=== PATIENT | female | born 1975 | race Caucasian/White ===

== ENCOUNTER → 2024-01-06 07:59 | Outpatient (CLI) | payer BC, SELFPAY ==
--- NOTE | ~2024-01-06 | CT_ITS ---
EXAMINATION: CT chest high resolution wo wi DATE: 01/06/2024 08:26 INDICATION: Lung nodule TECHNIQUE: Computed tomography (CT) of the chest was performed without intravenous contrast. The dose -length product (DLP) was 266.72 mGy-cm. Automated exposure control and iterative reconstruction tech nique were employed. COMPARISON: Chest radiograph, 12/25/2023 FINDINGS: No pleural effusion or pneumothorax. A calcified nodule of the left upper lobe and calcifie d left hilar lymph nodes are consistent with old granulomatous disease. There are subtle airspace opa cities in the right lower lobe. No suspicious pulmonary nodule is identified. There is soft tissue de nsity of the anterior mediastinum which could reflect residual thymus. There is mild thoracic spondyl osis. IMPRESSION: 1. Left upper lobe nodule, consistent with old granulomatous disease. 2. Subtle airspace opacities in the right lower lobe, likely infectious or inflammatory. Reviewed, dictated and finalized at location L. K TRIMMER IMPRESSION: 1. Left upper lobe nodule, consistent with old granulomatous disease. 2. Subtle airspace opacities in the right lower lobe, likely infectious or infl ammatory.
== END ==
PROVIDERS: PCP Nurse Practitioner Family; Visit Provider Nurse Practitioner Family
DX: J84.10 Pulmonary fibrosis, unspecified (principal); Z80.1 Family history of malignant neoplasm of trachea, bronchus and lung
CPT/HCPCS: 71250

== ENCOUNTER 2024-01-13 09:15 | Outpatient (CLI) | payer BC, SELFPAY ==
--- NOTE | ~2024-01-13 | US_ITS ---
EXAMINATION: US thyroid DATE: 01/13/2024 09:30 INDICATION: Thyroid disorder TECHNIQUE: Multiple ultrasound images of the thyroid were obtained. COMPARISON: None. FINDINGS: The right thyroid is reportedly surgically absent with no abnormal tissue identified at the right thy roid fossa The left thyroid lobe measures 6.4 x 2.3 x 2.5 cm. 2.5 cm solid isoechoic left thyroid no dule with smooth to ill-defined margins and without internal echogenic foci (TI-RADS 3, mildly suspic ious , FNA if >=2.5 cm, annual followup is >=1.5 cm). There is a second 1.3 cm solid hypoechoic left thyroid nodule with smooth margins and without internal echogenic foci (TI-RADS 4, moderately suspici ous , FNA if >=1.5 cm, annual followup is >=1 cm). There is normal echotexture, echogenicity and vasc ular flow throughout the remainder of the thyroid gland. IMPRESSION: 1. 2.5 cm TI RADS 3 and 1.3 cm TI RADS 4 left thyroid nodules. Recommend ultrasound-guided biopsy of the former and annual ultrasound follow-up of the latter. 2. Status post right thyroidectomy. Reviewed, dictated and finalized at location A. KLAYER IMPRESSION: 1. 2.5 cm TI RADS 3 and 1.3 cm TI RADS 4 left thyroid nodules. Recommend ultras ound-guided biopsy of the former and annual ultrasound follow-up of the latter. 2. Status post right thyroidectomy.
== END 2024-01-13 09:16 ==
LOC: MICIMG 09:16
PROVIDERS: PCP Nurse Practitioner Family; Visit Provider Nurse Practitioner Family
DX: E04.2 Nontoxic multinodular goiter (principal); Z90.89 Acquired absence of other organs
CPT/HCPCS: 76536

== ENCOUNTER 2024-02-17 12:31 | Outpatient (CLI) | payer BC, SELFPAY ==
--- NOTE | ~2024-02-17 | US_ITS ---
EXAMINATION: US FNA w image guidance DATE: 02/17/2024 14:16 INDICATION: Thyroid nodules TECHNIQUE: A time-out was performed to verify the patient's name, date of , and procedure to be performed . The procedure and its benefits and risks were discussed with the patient. Risks specifically discus sed included bleeding and infection. The patient understood the risks and agreed to proceed. The neck was prepped and draped in the usual sterile manner. 3 mL 1% lidocaine was used for local anesthesia . 6 passes were made with a 25G needle into the lesion. Appropriate needle location was documented with continuous sonographic guidance. A sterile bandage was applied. There were no immediate compli cations. FINDINGS: Grayscale ultrasound images demonstrate biopsy needles advanced into a 2.5 cm TI RADS 3 left thyroid mass. IMPRESSION: 1. Successful ultrasound-guided fine needle aspiration of a 2.5 cm TI RADS 3 left thyroid mass of co ncern. Reviewed, dictated and finalized at location A. IMPRESSION: 1. Successful ultrasound-guided fine needle aspiration of a 2.5 cm TI RADS 3 l eft thyroid mass of concern.
== END 2024-02-17 12:32 | disposition home or self-care (01) ==
PROVIDERS: PCP Nurse Practitioner Family; Visit Provider Nurse Practitioner Family
DX: E89.0 Postprocedural hypothyroidism (principal)
CPT/HCPCS: 10005; 88172; 88173; 88305

== ENCOUNTER 2024-03-23 00:37 | Day surgery (SDC) | payer BC, SELFPAY ==
[2024-01-16 12:03] VITALS: BMI 28.3
[2024-03-12 14:12] VITALS: BMI 28.3
[2024-03-23 10:23] VITALS: BP 111/74; PULSE 82; RESP 16; TEMP 36.6; O2SAT 100
[2024-03-23] MEDS: LACTATED RINGERS 1,000 ML 150 ML IV CONT (10:34)
--- NOTE | 2024-03-23 10:42 | PM.HPGS ---
History of Present Illness History of Present Illness Consent: Risks, benefits, and alternatives have been discussed and questions answered. Patient agrees to proceed with procedure. Chief complaint: neoplasm screening Narrative: Aditi Hi is a 48 year old female here for first screening colonoscopy Review of Systems Review of Systems: All systems reviewed & are unremarkable except as noted in HPI and below PMFSH Past Medical History Medical History (Updated 03/23/24 @ 10:44 by Chao Malin MD) Anxiety Colon cancer screening Thyroid disorder Surgical History Surgical History History of hysterectomy (~2017) History of partial thyroidectomy (1998) right side Family History Family History Father Depression Alcoholism Mother Alcoholism Depression Social History Social History Years smoked: 26 Smoking status: Former smoker Tobacco type: cigarettes and e-cigarettes/vaping Additional smoking assessment comments: CURRENTLY VAPING SINCE STOPPING CIGS. Alcohol intake: current Alcohol use details: social Substance use: never Substance use type: does not use Living arrangements: with family Occupation/Education: occupation Additional occupation/education comments: [employer] for [employer] Gender identity (if verbalized by the patient): Female Spiritual care concerns: No Meds Home Medications and Allergies Home Medications Medication Instructions Recorded Confirmed Type trazodone 50 mg tablet 25 - 50 mg PO QHS PRN insomnia #30 12/25/23 03/23/24 Rx tabs levothyroxine 50 mcg tablet 25 mcg PO DAILY #90 tabs 12/30/23 03/23/24 Rx Azo Probiotic 1 tab-cap PO DAILY 01/16/24 03/23/24 History Bio-Hormones 1 applic MONTHLY 01/16/24 03/23/24 History One Daily Women's 1 tab-cap PO DAILY 01/16/24 03/23/24 History Vitamin D3 1 cap PO DAILY 01/16/24 03/23/24 History ascorbic acid (vitamin C) 1 cap PO DAILY 01/16/24 03/23/24 History biotin 1 cap PO DAILY 01/16/24 03/23/24 History magnesium 1 tab-cap PO DAILY 01/16/24 03/23/24 History metoprolol succinate 25 mg 50 mg PO DAILY 01/16/24 03/23/24 History tablet,extended release 24 hr sertraline 50 mg tablet See Rx Instructions .Route 02/20/24 03/23/24 Rx .COMPLEX #90 tabs semaglutide (weight loss) 0.25 0.25 mg (0.5 mL) subcut WEEKLY #2 03/06/24 03/23/24 Rx mg/0.5 mL subcutaneous pen mL injector (Hetal) lorazepam 1 mg tablet 1 mg PO DAILY PRN anxiety #30 tabs 03/16/24 03/23/24 Rx Allergies Allergy/AdvReac Type Severity Reaction Status Date / Time terbutaline Allergy Severe Other Verified 03/23/24 10:20 Vital Signs Vital Signs - 24 hr 03/23/24 10:23 Temperature 97.8 F Pulse Rate 82 Respiratory Rate 16 Blood Pressure 111/74 Pulse Oximetry 100 Oxygen Delivery Room Air Exam Const: General: comfortable and no acute distress HENMT: Face/Nose/Sinus: Normal nares present Eyes: General: appearance normal, both eyes and all related structures Neck: Neck: no JVD Resp: Auscultation: clear to auscultation bilaterally Cardio: Rate: regular rate Rhythm: regular rhythm GI: Inspection: non-distended GI Palp: Yes Soft to palpation Skin: General skin exam: normal color Neuro: General: gait normal Speech: normal speech Extrem: General: normal to inspection Psych: Mental Status: mental status grossly normal Assessment and Plan Assessment and plan (1) Colon cancer screening: Code(s): Z12.11 - Encounter for screening for malignant neoplasm of colon Status: Acute Assessment and Plan: colonoscopy
--- NOTE | 2024-03-23 10:44 | WPDANESEPPF ---
Anes - Initial Pre Proc Eval Procedure: Operation Date: 03/23/24 11:30 Proposed Procedures p Screening Colonoscopy - Chao Malin MD Date/Time: 03/23/24 10:44 Surgeon: Chao Malin MD Pre Op Diagnosis: neoplasm screening Patient Data Age: 48 Gender: F Height: 1.6 m Weight: 72.3 kg Last Vital Signs Temp 97.8 F 03/23/24 10:23 Pulse 82 03/23/24 10:23 Resp 16 03/23/24 10:23 BP 111/74 03/23/24 10:23 Pulse Ox 100 03/23/24 10:23 O2 Del Method Room Air 03/23/24 10:23 Allergies Allergy/AdvReac Type Severity Reaction Status Date / Time terbutaline Allergy Severe Other Verified 03/23/24 10:20 Home Medications Medication Instructions Recorded Confirmed Type trazodone 50 mg tablet 25 - 50 mg PO QHS PRN insomnia #30 12/25/23 03/23/24 Rx tabs levothyroxine 50 mcg tablet 25 mcg PO DAILY #90 tabs 12/30/23 03/23/24 Rx Azo Probiotic 1 tab-cap PO DAILY 01/16/24 03/23/24 History Bio-Hormones 1 applic MONTHLY 01/16/24 03/23/24 History One Daily Women's 1 tab-cap PO DAILY 01/16/24 03/23/24 History Vitamin D3 1 cap PO DAILY 01/16/24 03/23/24 History ascorbic acid (vitamin C) 1 cap PO DAILY 01/16/24 03/23/24 History biotin 1 cap PO DAILY 01/16/24 03/23/24 History magnesium 1 tab-cap PO DAILY 01/16/24 03/23/24 History metoprolol succinate 25 mg 50 mg PO DAILY 01/16/24 03/23/24 History tablet,extended release 24 hr sertraline 50 mg tablet See Rx Instructions .Route 02/20/24 03/23/24 Rx .COMPLEX #90 tabs semaglutide (weight loss) 0.25 0.25 mg (0.5 mL) subcut WEEKLY #2 03/06/24 03/23/24 Rx mg/0.5 mL subcutaneous pen mL injector (Hetal) lorazepam 1 mg tablet 1 mg PO DAILY PRN anxiety #30 tabs 04/15/24 04/22/24 Rx Patient hx anesthesia problems: none Family hx anesthesia problems: none Results Review: All pre-operative results and documents have been reviewed as part of the pre-operative evaluation. [facility] Past Medical History Medical History Anxiety Thyroid disorder Surgical History Surgical History History of hysterectomy (~2017) History of partial thyroidectomy (1998) right side Family History Family History Father Depression Alcoholism Mother Alcoholism Depression Social History Social History Years smoked: 26 Smoking status: Former smoker Tobacco type: cigarettes and e-cigarettes/vaping Additional smoking assessment comments: CURRENTLY VAPING SINCE STOPPING CIGS. Alcohol intake: current Alcohol use details: social Substance use: never Substance use type: does not use Living arrangements: with family Occupation/Education: occupation Additional occupation/education comments: [employer] for [employer] Gender identity (if verbalized by the patient): Female Spiritual care concerns: No Anes - Eval Final PreProcedure Day of Procedure 03/23/24 10:44 Patient weight: normal Heart: regular rate and rhythm Lungs: clear to auscultation Airway: Mallampati scale class II Neurological: alert and oriented Last oral intake: >/= 8 hours ASA classification: III Emergent: no Anesthetic plan: proceed Anesthesia type and monitoring: general GIVS and standard monitoring Results Review: All pre-operative results and documents have been reviewed as part of the pre-operative evaluation. Informed Consent: The patient's anesthetic plan and its attendant risks and benefits were discussed with the patient/family/POA. Questions were solicited and answers provided to the satisfaction of the patient/family/POA.
[2024-03-23 11:04] VITALS: BP 91/54; PULSE 70; RESP 18; O2SAT 97
[2024-03-23 11:14] VITALS: BP 93/63; PULSE 72; RESP 19; O2SAT 100
[2024-03-23 11:24] VITALS: BP 117/80; PULSE 65; RESP 18; O2SAT 100
== END 2024-03-23 11:28 | disposition home or self-care (01) ==
PROVIDERS: PCP Nurse Practitioner Family; Visit Provider Internal Medicine Gastroenterology
PROC: 0DJD8ZZ Inspection of Lower Intestinal Tract, Via Natural or Artificial Opening Endoscopic (ICD-10-PCS; CPT 45378; principal; 2024-03-23 11:30)
DX: Z12.11 Encounter for screening for malignant neoplasm of colon (principal); F41.9 Anxiety disorder, unspecified; E07.9 Disorder of thyroid, unspecified; Z79.85 Long-term (current) use of injectable non-insulin antidiabetic drugs; Z98.890 Other specified postprocedural states; Z87.891 Personal history of nicotine dependence
CPT/HCPCS: 45378; J2704; J7120